=== PATIENT | male | born 1945 | race American Indian/Alaskan Native ===

== ENCOUNTER 2016-07-24 16:09 | Emergency (ER) | payer MEDICARE ==
[2016-07-24 17:31] VITALS: BP 141/91
[2016-07-24] MEDS ORDERED: TYLENOL PO ONE (17:50)
== END 2016-07-24 18:36 | disposition left against medical advice (07) ==
LOC: ED 16:09
DX: R07.9 Chest pain, unspecified (principal); Z53.21 Procedure and treatment not carried out due to patient leaving prior to being seen by health care provider